=== PATIENT | female | born 1990 | race Caucasian/White ===

== ENCOUNTER 2016-11-14 17:44 | Emergency (ER) | payer MEDICAID, OTHER ==
[2016-11-14 17:54] VITALS: RESP 20; TEMP 97.7; O2SAT 96
[2016-11-14] MEDS ORDERED: MethylPREDNISolone 40 mg Vial IM STA (18:31)
--- NOTE | 2016-11-14 19:18 | C.PDOC ---
History Of Present Illness The patient, a 26 y/o female, presents to the ED for evaluation of an itchy rash throughout her body which began around 3 days ago. Patient denies experiencing similar episodes in the past. Patient denies fever,chills, swelling , shortness of breath, chest pain, wheezing, or recent travel. Time Seen by Provider: 11/14/16 18:01 Chief Complaint (Nursing): Allergic Reaction History Per: Patient History/Exam Limitations: no limitations Onset/Duration Of Symptoms: Days (3) Current Symptoms Are (Timing): Still Present Possible Cause: Unknown Associated Symptoms: Skin Rash, Itching. denies: Swelling, Dyspnea, Trouble Swallowing, Chest Pain Severity: Mild Additional History Per: Patient Past Medical History Reviewed: Historical Data, Nursing Documentation, Vital Signs Vital Signs: Last Vital Signs Temp 97.7 F 11/14/16 17:50 Pulse 80 11/14/16 19:24 Resp 20 11/14/16 19:24 BP 118/74 11/14/16 19:24 Pulse Ox 96 11/14/16 20:41 - Medical History PMH: No Chronic Diseases Surgical History: No Surg Hx Family History: States: No Known Family Hx - Social History Hx Tobacco Use: No Hx Alcohol Use: No Hx Substance Use: No - Immunization History Hx Tetanus Toxoid Vaccination: No Hx Influenza Vaccination: Yes (2016) Hx Pneumococcal Vaccination: No Review Of Systems Except As Marked, All Systems Reviewed And Found Negative. Constitutional: Negative for: Fever, Chills ENT: Negative for: Mouth Swelling, Throat Swelling Cardiovascular: Negative for: Chest Pain Respiratory: Negative for: Shortness of Breath, Wheezing Skin: Positive for: Rash (itchy ) Physical Exam - Physical Exam Appears: Non-toxic, No Acute Distress Skin: Warm, Dry, Rash (diffuse urticaria ) Head: Atraumatic, Normacephalic Eye(s): bilateral: Normal Inspection Oral Mucosa: Moist Throat: Normal, No Erythema, No Exudate Neck: Normal ROM, Supple Chest: Symmetrical, No Deformity, No Tenderness Cardiovascular: Rhythm Regular, No Murmur Respiratory: Normal Breath Sounds, No Rales, No Rhonchi, No Wheezing Extremity: Normal ROM, Capillary Refill (less than 2 seconds ), No Swelling Neurological/Psych: Oriented x3, Normal Speech, Normal Cognition, Normal Motor Gait: Steady ED Course And Treatment O2 Sat by Pulse Oximetry: 96 (on RA) Pulse Ox Interpretation: Normal Medical Decision Making Medical Decision Making: Plan: * Benadryl PO * Pepcid PO * Solu-Medrol IM * reassess and disposition Progress Notes: Patient received Benadryl PO, Pepcid PO, and Solu-Medrol IM. On re-exam, the patient reports improvement of symptoms. Ambulatory in the ED with steady gait. Lungs are CTA, heart is RRR, abdomen is soft, non-tender and patient is tolerating PO well. Follow up with the medical doctor within 1-2 days , Return if worsened Disposition - Disposition Referrals: [facility] [Outside] Disposition: HOME/ ROUTINE Disposition Time: 19:18 Condition: GOOD Additional Instructions: Follow up with the medical doctor within 1-2 days, Return if worsened Prescriptions: DiphenhydrAMINE [Benadryl] 25 mg PO Q4H PRN #30 cap PRN Reason: Itching / Pruritus Famotidine [Pepcid] 20 mg PO DAILY #10 tab predniSONE [Prednisone] 20 mg PO BID #10 tab Instructions: Urticaria (ED) - Clinical Impression Clinical Impression: Allergic urticaria - 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 - Scribe Statement The provider has reviewed the documentation as recorded by the Scribe (Ginger Sawant) All medical record entries made by the Scribe were at my direction and personally dictated by me. I have reviewed the chart and agree that the record accurately reflects my personal performance of the history, physical exam, medical decision making, and the department course for this patient. I have also personally directed, reviewed, and agree with the discharge instructions and disposition.
[2016-11-14 19:25] VITALS: BP 118/74; PULSE 80
== END 2016-11-14 19:26 | disposition home or self-care (01) ==
LOC: C.ER 17:44
DX: L50.0 Allergic urticaria (principal)
CPT/HCPCS: 96372; 99284; J2920

== ENCOUNTER 2017-06-20 22:31 | Emergency (ER) | payer MEDICAID ==
[2017-06-20 22:47] VITALS: RESP 18
[2017-06-20] MEDS ORDERED: Bacitracin 500 Units/gm Oint Foilpak UD TOP ONE (23:26)
[2017-06-20] MEDS ORDERED: Lidocaine 1% w Epi 1:100,000 Inj INJ ONE (23:26)
--- NOTE | 2017-06-20 23:27 | C.PDOC ---
History Of Present Illness 26 year old female presents to the ER with a complaint of "pimples" to the bilateral axilla since last week that she states have gotten bigger and more painful. Patient reports she is currently on amoxicillin for an ear infection; admits to shaving the axilla. Denies fever or Hx of similar symptoms. Time Seen by Provider: 06/20/17 22:45 Chief Complaint (Nursing): Abnormal Skin Integrity History Per: Patient History/Exam Limitations: no limitations Onset/Duration Of Symptoms: Days Current Symptoms Are (Timing): Still Present Location Of Injury: Right: Chest (Axilla), Left: Chest Quality Of Symptoms: Painful (Pimples) Recent travel outside of the [place]: No Past Medical History Reviewed: Historical Data, Nursing Documentation, Vital Signs Vital Signs: Last Vital Signs Temp 98.3 F 06/21/17 00:29 Pulse 68 06/21/17 00:29 Resp 18 06/21/17 00:29 BP 125/78 06/21/17 00:29 Pulse Ox 99 06/21/17 01:55 - Medical History PMH: No Chronic Diseases Family History: States: Unknown Family Hx - Social History Hx Tobacco Use: No Hx Alcohol Use: No Hx Substance Use: No - Immunization History Hx Tetanus Toxoid Vaccination: No Hx Influenza Vaccination: Yes (2016) Hx Pneumococcal Vaccination: No Review Of Systems Constitutional: Negative for: Fever, Chills Skin: Positive for: Other (Pimples to bilateral axilla) Physical Exam - Physical Exam Appears: Non-toxic, No Acute Distress Skin: Warm, Dry, Other (Multiple tender masses to bilateral axilla, left more than right.) Head: Atraumatic, Normacephalic Eye(s): bilateral: Normal Inspection, EOMI Nose: Normal Oral Mucosa: Moist Neck: Normal ROM, Supple Chest: Symmetrical, No Tenderness Cardiovascular: Rhythm Regular Respiratory: Normal Breath Sounds Extremity: Normal ROM (x4) Neurological/Psych: Oriented x3, Normal Speech, Other (No focal deficits) ED Course And Treatment O2 Sat by Pulse Oximetry: 99 (Room air) Pulse Ox Interpretation: Normal Progress Note: Discussed case with Dr. Pappas who evaluated patient at bedside with US which showed fluids filled cavity. Dr Pappas instructs I&D and no additional abx. Patient tolerated I&D without difficulty, wound packed and bacitracin applied. Patient instructed to follow up for wound check in 2 days. - Incision & Drainage Of Abscess Anesthesia: Lidocaine 1%, With Epi Prep Used: Sterile Water, Betadine Procedure: Incised W/Scalpel Blade#: (11), Drained Pus, Irrigated Cavity W/ Saline, Probed To Break Up Loculations, Packed W/Gauze, Cultures Obtained And Sent To Lab Disposition - Disposition Disposition: HOME/ ROUTINE Disposition Time: 00:14 Condition: STABLE Additional Instructions: Wound check in 2 days. Keep area clean and dry. APply warm compresses. Instructions: Abscess Incision and Drainage (ED) Forms: [employer] (Irish), Work Excuse - Clinical Impression Clinical Impression: Abscess - PA / ASP DEVELOPER / Resident 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 - Scribe Statement The provider has reviewed the documentation as recorded by the Scribe Yaw Fam All medical record entries made by the Scribe were at my direction and personally dictated by me. I have reviewed the chart and agree that the record accurately reflects my personal performance of the history, physical exam, medical decision making, and the department course for this patient. I have also personally directed, reviewed, and agree with the discharge instructions and disposition.
[2017-06-20] MEDS ORDERED: Bacitracin 500 Units/gm Oint Foilpak UD ONE (23:36)
[2017-06-20] MEDS ORDERED: Lidocaine 2% w Epi 1:100,000 Inj IJ ONE (23:36)
[2017-06-21 00:32] VITALS: BP 125/78; PULSE 68; TEMP 98.3
[2017-06-21 01:37] VITALS: O2SAT 99
== END 2017-06-21 00:32 | disposition home or self-care (01) ==
LOC: C.ER 22:31
DX: L02.412 Cutaneous abscess of left axilla (principal); L02.411 Cutaneous abscess of right axilla

== ENCOUNTER 2017-06-22 14:21 | Emergency (ER) | payer MEDICAID ==
[2017-06-22 14:29] VITALS: BP 115/75; PULSE 86; TEMP 98.3; O2SAT 100
--- NOTE | 2017-06-22 14:50 | C.PDOC ---
History Of Present Illness FOR WOUND CHECK SP I&D 06/20 L AXILLA. PS CURRENTLY TAKING ABX FOR EAR INFXN, TO BE COMPLETED ON 06/24. NO FEVER, DC. EXAM NONTOXIC SKIN L AXILLA +WICK IN PLACE I&D WOUND. +SCANT PURULENT DC W LOCAL TEND, INDURATION. NO ERYTHEMA MDM PT ADVISED W PERSIST PURULENT DC, POSSIBILITY OF RECURRENCE. PT OFFERED REPEAT I &D BUT DEFERS @ THIS TIME. WILL CONT W CURRENT ABX. WARM COMPRESSES. ADVISED TO RETURN IF WORSENING SX Time Seen by Provider: 06/22/17 14:34 Chief Complaint (Nursing): Wound Check History Per: Patient History/Exam Limitations: no limitations Onset/Duration Of Symptoms: Hrs Current Symptoms Are (Timing): Still Present Severity: Moderate Past Medical History Reviewed: Historical Data, Nursing Documentation, Vital Signs Vital Signs: Last Vital Signs Temp 98.3 F 06/22/17 14:26 Pulse 86 06/22/17 14:26 Resp 18 06/22/17 14:26 BP 115/75 06/22/17 14:26 Pulse Ox 100 06/22/17 14:59 - Medical History PMH: No Chronic Diseases Surgical History: No Surg Hx Family History: States: No Known Family Hx - Social History Hx Tobacco Use: No Hx Alcohol Use: No Hx Substance Use: No - Immunization History Hx Tetanus Toxoid Vaccination: No Hx Influenza Vaccination: Yes (2016) Hx Pneumococcal Vaccination: No Review Of Systems Except As Marked, All Systems Reviewed And Found Negative. Constitutional: Negative for: Fever, Chills ENT: Positive for: Other (ear infection). Negative for: Ear Discharge Physical Exam - Physical Exam Appears: Non-toxic Skin: Normal Color, Warm, Other (left axilla wick in place I &D wound, scant purulent discharge with local tenderness, induration, no erythema) Head: Atraumatic, Normacephalic Eye(s): bilateral: Normal Inspection, PERRL Neurological/Psych: Oriented x3, Normal Speech, Normal Cognition, Normal Motor, Normal Sensation ED Course And Treatment O2 Sat by Pulse Oximetry: 100 (RA) Pulse Ox Interpretation: Normal Medical Decision Making Medical Decision Making: PT ADVISED W PERSIST PURULENT DC, POSSIBILITY OF RECURRENCE. PT OFFERED REPEAT I &D BUT DEFERS @ THIS TIME. WILL CONT W CURRENT ABX. WARM COMPRESSES. ADVISED TO RETURN IF WORSENING SX Disposition Counseled Patient/Family Regarding: Diagnosis, Need For Followup - Disposition Referrals: [facility] [Outside] [facility] [Outside] Disposition: HOME/ ROUTINE Disposition Time: 14:50 Condition: GOOD Additional Instructions: COMPLETE CURRENT ANTIBIOTICS. WARM COMPRESS TO AFFECTED AREA 4-5X DAILY. RETURN IF WORSENING SYMPTOMS. Instructions: Abscess Follow-up (ED) Forms: [employer] ([place]ay[place] Islander) - Clinical Impression Clinical Impression: Wound check, abscess - Scribe Statement The provider has reviewed the documentation as recorded by the Vaishali Garcia Provider Attestation: All medical record entries made by the Vaishali were at my direction and personally dictated by me. I have reviewed the chart and agree that the record accurately reflects my personal performance of the history, physical exam, medical decision making, and the department course for this patient. I have also personally directed, reviewed, and agree with the discharge instructions and disposition.
[2017-06-22 15:08] VITALS: RESP 16
== END 2017-06-22 15:07 | disposition home or self-care (01) ==
LOC: C.ER 14:21
DX: Z48.00 Encounter for change or removal of nonsurgical wound dressing (principal); L02.412 Cutaneous abscess of left axilla

== ENCOUNTER 2017-12-07 17:39 | Emergency (ER) | payer MEDICAID ==
[2017-12-07 17:52] VITALS: BMI 26.6
[2017-12-07 17:56] VITALS: BP 121/77; PULSE 65; RESP 18; TEMP 98.2; O2SAT 100
--- NOTE | 2017-12-07 18:25 | C.PDOC ---
History Of Present Illness 27 y/o female presents to the ED complaining of urinary frequency for the past 3 -4 days. Associated with mild nausea. Otherwise denies any dysuria, vomiting, fever, vaginal bleeding or discharge. Time Seen by Provider: 12/07/17 17:55 Chief Complaint (Nursing): Back Pain History Per: Patient History/Exam Limitations: no limitations Onset/Duration Of Symptoms: Days Current Symptoms Are (Timing): Still Present Past Medical History Reviewed: Historical Data, Nursing Documentation, Vital Signs Vital Signs: Last Vital Signs Temp 98.2 F 12/07/17 17:52 Pulse 65 12/07/17 17:52 Resp 18 12/07/17 17:52 BP 121/77 12/07/17 17:52 Pulse Ox 100 12/07/17 18:48 Other Surgeries: Open heart surgery Family History: States: Unknown Family Hx - Social History Hx Tobacco Use: No Hx Alcohol Use: No Hx Substance Use: No - Immunization History Hx Tetanus Toxoid Vaccination: No Hx Influenza Vaccination: Yes (2015) Hx Pneumococcal Vaccination: No Review Of Systems Except As Marked, All Systems Reviewed And Found Negative. Constitutional: Negative for: Fever, Chills Gastrointestinal: Positive for: Nausea. Negative for: Vomiting Genitourinary: Positive for: Frequency. Negative for: Dysuria, Vaginal Discharge, Vaginal Bleeding Physical Exam - Physical Exam Appears: Non-toxic, No Acute Distress Skin: Normal Color, Warm, Dry Head: Atraumatic, Normacephalic Eye(s): bilateral: Normal Inspection, PERRL, EOMI Nose: Normal Oral Mucosa: Moist Neck: Normal ROM, Supple Chest: Symmetrical Cardiovascular: Rhythm Regular Respiratory: Normal Breath Sounds, No Accessory Muscle Use Gastrointestinal/Abdominal: Soft, No Tenderness, No Distention, No Guarding Back: Normal Inspection, No CVA Tenderness, No Vertebral Tenderness Extremity: Bilateral: Atraumatic, Normal ROM Neurological/Psych: Oriented x3, Normal Speech ED Course And Treatment O2 Sat by Pulse Oximetry: 100 (RA) Pulse Ox Interpretation: Normal Medical Decision Making Medical Decision Making: Initial Impression: 27 y/o F with urinary frequency Time: 17:59 Initial Plan: --Urine HCG --Urinalysis --Urine culture Labs reviewed: urine shows trace leuks and (+) WBCs. Patient will be discharged home on antibiotics and advised to follow up with PMD /the clinic. Disposition Counseled Patient/Family Regarding: Studies Performed, Diagnosis, Rx Given - Disposition Referrals: [facility] [Outside] Disposition: HOME/ ROUTINE Disposition Time: 18:46 Condition: GOOD Additional Instructions: BENITO BEAULIEU, thank you for letting us take care of you today. Your provider was Bubba Mak DO. The emergency medical care you received today was directed at your acute symptoms. If you were prescribed any medication, please fill it and take as directed. It may take several days for your symptoms to resolve. Return to the Emergency Department if your symptoms worsen, do not improve, or if you have any other problems. Please contact your doctor or call one of the physicians/clinics you have been referred to that are listed on the Patient Visit Information form that is included in your discharge packet. Bring any paperwork you were given at discharge with you along with any medications you are taking to your follow up visit. Our treatment cannot replace ongoing medical care by a primary care provider outside of the emergency department. Thank you for allowing the [facility] team to be part of your care today. Follow up with your clinic in 3-4 days for re-evaluation and further management. Prescriptions: Ibuprofen [Motrin] 600 mg PO Q6 PRN #20 tab PRN Reason: Pain, Moderate (4-7) Nitrofurantoin Macrocrystals [Macrobid] 100 mg PO BID #10 cap Instructions: Urinary Tract Infections in Adults Forms: [employer] (Swazi) - POA Present On Arrival: None - Clinical Impression Clinical Impression: UTI (urinary tract infection) - Scribe Statement The provider has reviewed the documentation as recorded by the Scribe (Miladis Rodas) Provider Attestation: All medical record entries made by the Scribe were at my direction and personally dictated by me. I have reviewed the chart and agree that the record accurately reflects my personal performance of the history, physical exam, medical decision making, and the department course for this patient. I have also personally directed, reviewed, and agree with the discharge instructions and disposition.
[2017-12-07 18:36] LABS: HCG,QUALITATIVE URINE NEGATIVE (NEGATIVE)
[2017-12-07 18:41] LABS: URINE BILIRUBIN NEGATIVE (NEGATIVE); URINE CLARITY Clear (Clear); URINE COLOR YELLOW (YELLOW); URINE GLUCOSE (UA) NORMAL (Normal)
[2017-12-07 18:42] LABS: SQUAMOUS EPITHIAL 2 /hpf (0-5); URINE BACTERIA RARE (<OCC); URINE BLOOD NEGATIVE (NEGATIVE); URINE PROTEIN NEGATIVE (NEGATIVE); URINE UROBILINOGEN NORMAL mg/dL (0.2-1.0)
[2017-12-07 18:46] LABS: URINE LEUKOCYTE ESTERASE TRACE Leu/uL (Negative)
== END 2017-12-07 18:51 | disposition home or self-care (01) ==
LOC: C.ER 17:39
DX: N39.0 Urinary tract infection, site not specified (principal)